=== PATIENT | male | born 1990 | race Caucasian/White ===

== ENCOUNTER 2023-11-18 00:55 | Emergency (ER) | payer MEDICAID ==
[~2023-11-18] VITALS: Ht 172.7 cm; Wt 125.0 kg
[2023-11-18 01:00] VITALS: TEMP 98.4; O2SAT 99
[2023-11-18] MEDS ORDERED: IBUP-2029 MT (02:22)
[2023-11-18 03:08] VITALS: BP 146/84; PULSE 89; RESP 12
[2023-11-18] MEDS: IBUPROFEN 600MG TABLET PO ONE (03:08)
== END 2023-11-18 04:05 | disposition home or self-care (01) ==
LOC: EDBD 00:55 → ER 00:55
DX: S93.402A Sprain of unspecified ligament of left ankle, initial encounter (principal); X58.XXXA Exposure to other specified factors, initial encounter; Y93.89 Activity, other specified; Y92.89 Other specified places as the place of occurrence of the external cause; Y99.8 Other external cause status
CPT/HCPCS: 73610; 99283; Z7610

== ENCOUNTER 2023-12-19 21:47 | Emergency (ER) | payer MEDICAID ==
[~2023-12-19] VITALS: Ht 167.6 cm; Wt 100.0 kg
[2023-12-19 22:12] VITALS: TEMP 98.6; O2SAT 97
[2023-12-19] MEDS ORDERED: KETOROLAC 15MG/ML VIAL IM ONE (22:45)
[2023-12-19 23:00] VITALS: BP 138/88; PULSE 120; RESP 14
[2023-12-19] MEDS: KETOROLAC 15MG/ML VIAL IM NR (23:00)
[2023-12-20] MEDS ORDERED: NAPR-1176 MT (01:12)
[2023-12-20] MEDS ORDERED: MELO-105 MT (05:53)
== END 2023-12-20 01:17 | disposition home or self-care (01) ==
LOC: ER 21:47
DX: M25.572 Pain in left ankle and joints of left foot (principal)
CPT/HCPCS: 99283; 73610; 96372; J1885

== ENCOUNTER 2023-12-20 03:18 | Emergency (ER) | payer MEDICAID ==
[~2023-12-20] VITALS: Ht 172.7 cm; Wt 112.0 kg
[~2023-12-20 03:18] MED LIST: NAPR-1176 MT
[2023-12-20 03:22] VITALS: BP 143/99; PULSE 111; RESP 18; TEMP 97.8; O2SAT 99
[2023-12-20] MEDS ORDERED: MELO-105 MT (05:53)
== END 2023-12-20 06:13 | disposition home or self-care (01) ==
LOC: ER 03:21
DX: M25.572 Pain in left ankle and joints of left foot (principal); Z88.0 Allergy status to penicillin
CPT/HCPCS: 99283